=== PATIENT | female | born 1955 | race Caucasian/White ===

== ENCOUNTER 2024-02-02 15:48 | Outpatient (CLI) | payer OTHER ==
[2024-02-02 17:05] LABS: #Basophils 0.03 10x3/uL (0.0-0.2); %Basophils 0.4 % (0.0-1.0); %Eosinophils 3.3 % (0.0-10.0); %Monocytes 7.2 % (0.0-10.0); %Neutrophils 48.8 % (42.0-75.0); Hematocrit 42.5 % (36.0-47.0); Mean Corpuscular HGB CONC 32.9 g/dL (32.0-36.0); Mean Corpuscular Hemoglobin 29.9 pg (27.0-31.0); Mean Corpuscular Volume 90.8 fL (78.0-98.0); Mean Platelet Volume 9.9 fL (7.4-10.4); Platelet Count 220 10x3/uL (130-400); RBC Distribution Width 14.1 % (11.5-14.5); Red Blood Cell (RBC) Count 4.68 mill/uL (4.20-5.40)
[2024-02-02 17:20] LABS: Anion Gap 11 mmol/L (10-20); BUN (Urea Nitrogen) 19 mg/dL (9.8-20.1); Calc. Creatinine Clearance 0 mL/min (70-130); Calcium 9.8 mg/dL (7.8-10.44); Carbon Dioxide 26 mmol/L (23-31); Chloride 102 mmol/L (98-107); Estimated GFR 69; Glucose 83 mg/dL (80-115); Potassium 3.8 mmol/L (3.5-5.1); Sodium 135 mmol/L (136-145)
== END 2024-02-02 15:49 | disposition home or self-care (01) ==
LOC: LABBT 15:48
PROVIDERS: ATTEND Orthopaedic Surgery Hand Surgery
DX: Z01.818 Encounter for other preprocedural examination (principal); G56.03 Carpal tunnel syndrome, bilateral upper limbs
CPT/HCPCS: 80048; 85025; 93005; 93010

== ENCOUNTER 2024-02-05 06:37 | Day surgery (SDC) | payer OTHER ==
[2024-02-02 16:19] VITALS: BMI 23.6
[2024-02-05] MEDS ORDERED: Betamet Acet/Betamet Na Ph 30 MG/5 ML VIAL ONE (06:52)
[2024-02-05] MEDS ORDERED: Bupivacaine PF 0.5% 30 ML VIAL ONE (06:52)
[2024-02-05] MEDS ORDERED: Bacitracin Zinc Ointment 30 gm TUBE ONE (06:52)
[2024-02-05] MEDS ORDERED: Lidocaine 1% MPF 2 ML VIAL ONE (07:19)
[2024-02-05] MEDS ORDERED: Clindamycin/D5W 900 mg/50 ml Premix Bag ONE (07:20)
[2024-02-05] MEDS ORDERED: LevoFLOXacin D5W 500 mg (100 mL) BAG ONE (07:20)
[2024-02-05] MEDS ORDERED: fentaNYL PF 100 MCG/2 ML SYRINGE ONE (07:24)
[2024-02-05] MEDS ORDERED: Midazolam HCl 2 mg/2 ml Vial ONE (07:25)
[2024-02-05] MEDS ORDERED: Ketamine In 0.9 % NaCl 50 MG/5 ML SYRINGE ONE (07:25)
[2024-02-05] MEDS ORDERED: PROPOFOL 20 ML ONE (07:25)
[2024-02-05] MEDS ORDERED: ePHEDrine Sulfate 50 MG/10 ML VIAL ONE (08:10)
[2024-02-05] MEDS ORDERED: Dexamethasone 20 MG/5 ML VIAL ONE (08:21)
[2024-02-05] MEDS ORDERED: Phenylephrine 10 MG/ML VIAL ONE (08:29)
[2024-02-05] MEDS ORDERED: Ketorolac Tromethamine 30 MG (1 mL) VIAL ONE (09:02)
[2024-02-05] MEDS ORDERED: PHENYLEPHRINE-NS 100 MCG/ML 10 ML SYRINGE ONE (09:02)
== END 2024-02-05 11:45 | disposition home or self-care (01) ==
LOC: SDC 06:37
PROVIDERS: ATTEND Orthopaedic Surgery Hand Surgery
PROC: 01N50ZZ Release Median Nerve, Open Approach (ICD-10-PCS; principal; 2024-02-05)
DX: G56.03 Carpal tunnel syndrome, bilateral upper limbs (principal); I50.9 Heart failure, unspecified; I25.10 Atherosclerotic heart disease of native coronary artery without angina pectoris; D64.9 Anemia, unspecified; Z95.0 Presence of cardiac pacemaker; Z90.710 Acquired absence of both cervix and uterus; Z98.890 Other specified postprocedural states; Z91.040 Latex allergy status; Z88.1 Allergy status to other antibiotic agents; Z88.0 Allergy status to penicillin
CPT/HCPCS: A6223; J0665; J0702; J1100; J1885; J1956; J2250; J2371; J2704; J3490

== ENCOUNTER 2024-10-13 10:24 | Inpatient (IN) | payer OTHER, MEDICARE ==
[2024-10-13 11:19] LABS: #Basophils 0.03 10x3/uL (0.0-0.2); #Eosinophils 0.24 10x3/uL (0.0-0.7); #Monocytes 0.36 10x3/uL (0.11-0.59); #Neutrophils 1.94 10x3/uL (1.40-6.50); %Basophils 0.7 % (0.0-1.0); %Eosinophils 5.5 % (0.0-10.0); %Lymphocytes 40.6 % (21.0-51.0); %Monocytes 8.3 % (0.0-10.0); %Neutrophils 44.7 % (42.0-75.0); Hematocrit 39.7 % (36.0-47.0); Hemoglobin 12.8 g/dL (12.0-16.0); Mean Corpuscular Hemoglobin 28.8 pg (27.0-31.0); Mean Corpuscular Volume 89.2 fL (78.0-98.0); Platelet Count 221 10x3/uL (130-400); Red Blood Cell (RBC) Count 4.45 mill/uL (4.20-5.40); White Blood Cell (WBC) Count 4.34 10x3/uL (4.8-10.8)
[2024-10-13 11:37] LABS: INR-International Normal Ratio 1.1; Prothrombin Time 14.4 sec (12.0-14.7)
[2024-10-13 11:38] LABS: PTT 30.6 sec (22.9-36.1)
[2024-10-13 11:57] LABS: ALT (SGPT) 12 U/L (Less than 34); AST (SGOT) 14 U/L (11-34); Albumin 3.6 g/dL (3.1-4.5); Alkaline Phosphatase 69 U/L (40-110); Anion Gap 12 mmol/L (10-20); BUN (Urea Nitrogen) 14 mg/dL (9.8-20.1); Bilirubin, Total 0.6 mg/dL (0.3-1.2); Calc. Creatinine Clearance 0 mL/min (70-130); Calcium 8.9 mg/dL (7.8-10.44); Carbon Dioxide 24 mmol/L (23-31); Chloride 109 mmol/L (98-107); Globulin 2.6 g/dL (2.4-3.5); Glucose 113 mg/dL (83-110); Potassium 3.7 mmol/L (3.5-5.1); Sodium 141 mmol/L (136-145); Troponin I Less than 0.010 ng/mL (< 0.028)
[2024-10-13 12:14] LABS: Bacteria/HPF None Seen HPF (None Seen); CAUTI Indications for Culture Dysuria,urgency,freq; Glucose, Urine (Dipstick) Greater than 1000 mg/dL (Negative); Leukocyte Negative Leu/uL (Negative); Protein, Urine (Dipstick) Negative (Neg-Trace); RBC/HPF 0-3 HPF (0-3); Specific Gravity, Urine 1.007 (1.002-1.036); WBC/HPF None Seen HPF (0-3)
[2024-10-13 12:15] LABS: Urine Culture Reflex No No
[2024-10-13] MEDS ORDERED: Iopamidol-370 76% 500 ML MDV (1 ML CHARGE) ONE (13:46)
[2024-10-13] MEDS ORDERED: hydrALAZINE 20 MG/ML VIAL SLOW IVP PRN (14:55)
[2024-10-13] MEDS ORDERED: Aspirin Chewable 81 MG TAB ONE (15:01)
[2024-10-13] MEDS ORDERED: Furosemide 20 MG (2 mL) VIAL ONE (16:09)
[2024-10-13 18:40] VITALS: BMI 23.1
[2024-10-14 04:56] LABS: Cardiac Risk 3.8 (Less than 4.5); Cholesterol 178.0 mg/dl (< 200 Desired); HDL Cholesterol 47.0 mg/dL (>60 Neg Risk); LDL Cholesterol, Calculated 120.0 mg/dL; Triglycerides 53.0 mg/dL (Less than 150)
[2024-10-14] MEDS: Aspirin 81 mg Enteric Coated Tablet PO SCH (10:10)
[2024-10-15 04:29] LABS: #Basophils 0.04 10x3/uL (0.0-0.2); #Eosinophils 0.37 10x3/uL (0.0-0.7); #Monocytes 0.53 10x3/uL (0.11-0.59); #Neutrophils 2.45 10x3/uL (1.40-6.50); %Basophils 0.6 % (0.0-1.0); %Eosinophils 5.4 % (0.0-10.0); %Lymphocytes 50.5 % (21.0-51.0); %Monocytes 7.7 % (0.0-10.0); %Neutrophils 35.5 % (42.0-75.0); Hematocrit 39.2 % (36.0-47.0); Hemoglobin 12.2 g/dL (12.0-16.0); Mean Corpuscular Hemoglobin 27.7 pg (27.0-31.0); Mean Corpuscular Volume 89.1 fL (78.0-98.0); Platelet Count 242 10x3/uL (130-400); Red Blood Cell (RBC) Count 4.40 mill/uL (4.20-5.40); White Blood Cell (WBC) Count 6.89 10x3/uL (4.8-10.8)
[2024-10-15 05:20] LABS: Anion Gap 14 mmol/L (10-20); BUN (Urea Nitrogen) 16 mg/dL (9.8-20.1); Calc. Creatinine Clearance 76 mL/min (70-130); Calcium 8.9 mg/dL (7.8-10.44); Carbon Dioxide 23 mmol/L (23-31); Chloride 110 mmol/L (98-107); Glucose 114 mg/dL (83-110); Potassium 3.9 mmol/L (3.5-5.1); Sodium 143 mmol/L (136-145)
[2024-10-15 15:31] VITALS: BP 125/73; TEMP 97.7
== END 2024-10-15 18:25 | disposition home or self-care (01) | DRG 948 ==
LOC: ERS 10:24 → 2SE 14:35 → OBSVTOIN 10-14 13:46
PROVIDERS: ADMIT Hospitalist; ATTEND Internal Medicine
DX: R41.0 Disorientation, unspecified (principal); I42.0 Dilated cardiomyopathy; I50.22 Chronic systolic (congestive) heart failure; R53.1 Weakness; R29.898 Other symptoms and signs involving the musculoskeletal system; R53.83 Other fatigue; R29.810 Facial weakness; I66.02 Occlusion and stenosis of left middle cerebral artery; I11.0 Hypertensive heart disease with heart failure; Z95.810 Presence of automatic (implantable) cardiac defibrillator; Z88.0 Allergy status to penicillin; Z98.890 Other specified postprocedural states; Z82.49 Family history of ischemic heart disease and other diseases of the circulatory system; Z88.8 Allergy status to other drugs, medicaments and biological substances; Z79.899 Other long term (current) drug therapy; Z90.711 Acquired absence of uterus with remaining cervical stump; Z88.1 Allergy status to other antibiotic agents; Q67.0 Congenital facial asymmetry; H55.00 Unspecified nystagmus
CPT/HCPCS: 36415; 70450; 70496; 70498; 71045; 76014; 76015; 80048; 80053; 80061; 81001; 83036; 83880; 84443; 84484; 85025; 85610; 85730; 93005; 93306; 96374; J1940; Q9967